=== PATIENT | female | born 2000 | race Hispanic/Latino ===

== ENCOUNTER → 2021-12-07 10:27 | Outpatient (CLI) | payer OTHER, SELFPAY ==
[2021-12-07 11:02] LABS: Appearance Urine UA CLEAR; Bilirubin Urine UA NEGATIVE (NEGATIVE); Color Urine UA YELLOW; Glucose Urine UA NEGATIVE (Negative); Ketones Urine UA NEGATIVE (NEGATIVE); Leukocyte Esterase Urine UA NEGATIVE (NEGATIVE); Nitrite Urine UA NEGATIVE (Negative); Occult Blood Urine UA NEGATIVE (Negative); Protein Urine UA NEGATIVE (Negative); Urobilinogen Urine UA 0.2 E.U./dL (0.2); pH Urine UA 7.5 (4.5-8.0)
[2021-12-07 11:27] LABS: Add Manual Diff / Slide Review NO; Basophils Absolute Auto 100 /uL (0-100); Basophils Percent Auto 0.7 % (0-2); Eosinophils Absolute Auto 100 /uL (0-450); Eosinophils Percent Auto 0.9 % (2-4); Hematocrit 34.5 % (36-46); Hemoglobin 11.7 g/dL (12.0-16.0); Lymphocytes Absolute Auto 2300 /uL (1100-4500); Lymphocytes Percent Auto 24.8 % (25-40); Mean Corpuscular Hemoglobin 29.5 PG (26-34); Mean Corpuscular Volume 86.9 fL (80-100); Monocytes Absolute Auto 700 /uL (0-900); Monocytes Percent Auto 7.2 % (3-14); Neutrophils Absolute Auto 6100 /uL (1500-7000); Neutrophils Percent Auto 66.4 % (50-75); Platelet Count 313 X10^3/uL (150-400); Red Blood Cell Count 3.97 X10^6/uL (4.0-5.2); Red Cell Distribution Width 13.3 % (11.6-14.8); White Blood Cell Count 9.2 X10^3/uL (4.5-11.0)
[2021-12-08 07:19] LABS: RPR Screen Non Reactive (Non Reactive)
[2021-12-08 10:04] LABS: Varicella IgG Antibody 245 index (Immune >165)
[2021-12-08 17:32] LABS: Hepatitis B Surface Antigen NEGATIVE s/c (NEGATIVE); Rubella Antibody IgG 6.6 IU/mL (>15)
[2021-12-08 17:51] LABS: HIV 1 & 2 Ab/Ag 4th Gen Combo NEGATIVE (NEGATIVE); Hep C Virus Ab w/Reflex Quant NEGATIVE s/c (NEGATIVE)
== END ==
PROVIDERS: Referring Provider Family Medicine; Visit Provider Family Medicine
DX: Z34.00 Encounter for supervision of normal first pregnancy, unspecified trimester (principal)
CPT/HCPCS: 36415; 80055; 81003; 86787; 86803; 86850; 86900; 86901; 87086; 87389

== ENCOUNTER → 2021-12-22 10:23 | Outpatient (CLI) | payer OTHER, SELFPAY ==
[2021-12-22 11:28] LABS: Appearance Urine UA CLEAR; Bilirubin Urine UA NEGATIVE (NEGATIVE); Color Urine UA YELLOW; Glucose Urine UA NEGATIVE (Negative); Ketones Urine UA NEGATIVE (NEGATIVE); Leukocyte Esterase Urine UA TRACE (NEGATIVE); Nitrite Urine UA NEGATIVE (Negative); Occult Blood Urine UA 2+ (Negative); Protein Urine UA TRACE (Negative); Urobilinogen Urine UA 0.2 E.U./dL (0.2)
[2021-12-22 12:04] LABS: Bacteria Urine Few (2-10); RBC Urine 1-5/HPF (0-5/HPF); Squamous Epithelial Cell Urine 1-5 /HPF (0-5/HPF); WBC Urine 5-10/HPF (0-5/HPF)
[2021-12-22 12:05] LABS: Culture Indicated Urine Specimen Cultured
== END ==
PROVIDERS: Referring Provider Family Medicine; Visit Provider Family Medicine
DX: R31.9 Hematuria, unspecified (principal)
CPT/HCPCS: 81001; 87086

== ENCOUNTER → 2022-02-14 12:42 | Outpatient (CLI) | payer OTHER, SELFPAY ==
[2022-02-16 21:15] LABS: AFP, Serum 63.6 ng/mL (.); Estriol, Free 1.44 ng/mL (.); Inhibin A, Dimeric 229.25 pg/mL (.); Inhibin A, MoM 1.48 (.); Maternal Ethnicity Other (.); Maternal Weight 155 lbs (.); Number of Fetuses No (.); OSBR Risk 1 IN 4803 (.); Results Report (.); Test Results *Screen Negative* (.); hCG, MoM 0.95 (.); hCG, Serum 25929 mIU/mL (.)
== END ==
PROVIDERS: Referring Provider Family Medicine; Visit Provider Family Medicine
DX: Z34.90 Encounter for supervision of normal pregnancy, unspecified, unspecified trimester (principal)
CPT/HCPCS: 82105; 82677; 84702; 86336

== ENCOUNTER → 2022-02-23 14:05 | Outpatient (CLI) | payer OTHER, SELFPAY ==
--- NOTE | 2022-02-23 14:07 | DI.US.S_ITS ---
PROCEDURE: US OB >= 14 WEEKS FETUS INDICATIONS: ANATOMY AND DATING OUTSIDE/PRIOR DATING DATA: Last menstrual period (LMP): 09/16/2021. LMP-based estimated date of delivery (NATHANIEL): 07/13/2022. First dating scan (date and location): 02/23/2022 at . Estimated date of delivery (NATHANIEL) from first dating scan: 07/16/2022. TECHNIQUE: Real-time scanning was performed of the fetus, with image documentation and biometric measurements. Endovaginal scanning: Not performed COMPARISON: None. FINDINGS: General: A single living intrauterine gestation is present. Presentation: Vertex. Placenta: Placental position is posterior , without previa. Amniotic fluid index: 11.4 cm, normal range is 5-24 cm. Single deepest vertical pocket is 4.0 cm. heart rate: 140 beats per minute. Maternal cervical canal: 4.3 cm long. Normal lower limit is 2.5 cm. biometrics: Biparietal diameter: 19 weeks 6 days Head circumference: 19 weeks 4 days Abdominal circumference: 19 weeks 2 days Femur length: 19 weeks 4 days Clinically estimated gestational age: 20 weeks 0 day. Composite gestational age from present scan: 19 weeks 4 days Estimated weight and percentile: 292; 18% Anatomic survey: Neuro: Ventricles are non-dilated at less than 10 mm. Cisterna magna is normal at 3-11 mm. Cerebellum is normal in size and morphology. Nuchal skin fold: Normal at less than 6 mm between 14-21 weeks gestational age. Face: Nose and lips are normal. Facial profile suboptimally visualized. Spine: No evidence for spina bifida. Heart: 4-chambered heart is present, with normal ventricular outflow tracts. Diaphragm: Diaphragm is intact. Stomach: Left-sided stomach is present. Kidneys: No hydronephrosis. Normal is less than 5 mm in 2nd trimester, less than 7 mm in 3rd trimester. Cord: 3-vessel cord. Placental cord insertion is approximately 2.8 cm from the edge. Bladder: Normal in size. Extremities: All 4 extremities identified. IMPRESSION: 1. A single living intrauterine gestation with an estimated gestational age of 19 weeks 4 days corresponding to ultrasound NATHANIEL 07/16/2022. 2. Suboptimal visualization of facial profile. Otherwise normal anatomic survey. 3. Placental cord insertion is approximately 2.8 cm from the edge. We strive to produce accurate, complete, and clear reports of imaging services. To assist us in improving patient care, this report was composed using standard report templates and voice recognition software. Therefore, it may contain abnormal punctuation, insertions and/or omissions. Occasional wrong-word or sound-alike substitutions may occur. Though we review the report and make efforts to correct it, we do recommend that the report be read carefully in proper context to recognize any text inaccuracies. Dictated by: Sita Nino M.D. on 02/23/2022 at 17:03 Approved by: Sita Nino M.D. on 02/23/2022 at 17:11
== END ==
PROVIDERS: PCP Family Medicine; Referring Provider Family Medicine; Visit Provider Family Medicine
DX: Z3A.19 19 weeks gestation of pregnancy; Z34.92 Encounter for supervision of normal pregnancy, unspecified, second trimester
CPT/HCPCS: 76811

== ENCOUNTER → 2022-03-20 08:47 | Outpatient (CLI) | payer OTHER, SELFPAY ==
--- NOTE | 2022-03-20 08:48 | DI.US.S_ITS ---
PROCEDURE: US OB FOLLOW UP INDICATIONS: f/u to view facial features of fetus OUTSIDE/PRIOR DATING DATA: Last menstrual period (LMP): 10/06/2021 LMP-based estimated date of delivery (NATHANIEL): 07/13/2022 First dating scan (date and location): 02/23/2022 Estimated date of delivery (NATHANIEL) from first dating scan: 07/16/2022 The calculations are made using the study generated NATHANIEL of 07/16/2022. TECHNIQUE: Real-time scanning was performed of the fetus, with image documentation and biometric measurements. Endovaginal scanning: Not indicated. COMPARISON: [facility], , OB >= 14 WEEKS FETUS, 02/23/2022, 14:28. FINDINGS: General: A single living intrauterine gestation is present. Presentation: Cephalic. Placenta: Placental position is posterior, without previa. Amniotic fluid index: 14.9 cm, normal range is 5-24 cm. Single deepest vertical pocket is 3.9 cm. heart rate: 135 beats per minute. Maternal cervical canal: 4 cm long. Normal lower limit is 2.5 cm. biometrics: Biparietal diameter: 5.73 cm, 23 weeks, 4 days Head circumference: 20.97 cm, 23 weeks, 0 day Abdominal circumference: 18.58 cm, 23 weeks, 3 days Femur length: 4.13 cm, 23 weeks, 5 days Clinically estimated gestational age: 23 weeks, 1 day Composite gestational age from present scan: 23 weeks, 3 days Estimated weight and percentile: 587 grams, 32 percent Other: N suboptimal evaluation of facial profile and appears grossly within normal limits. No gross abnormality is seen in bilateral kidneys. IMPRESSION: 1. Single live intrauterine gestation with fetus in cephalic presentation. heart rate is 135 beats per minute. Normal growth. Normal amount of amniotic fluid. 2. facial profile is again suboptimally evaluated however appears grossly within normal limits. We strive to produce accurate, complete, and clear reports of imaging services. To assist us in improving patient care, this report was composed using standard report templates and voice recognition software. Therefore, it may contain abnormal punctuation, insertions and/or omissions. Occasional wrong-word or sound-alike substitutions may occur. Though we review the report and make efforts to correct it, we do recommend that the report be read carefully in proper context to recognize any text inaccuracies. Dictated by: Jeffry Rosado M.D. on 03/20/2022 at 10:49 Approved by: Jeffry Rosado M.D. on 03/20/2022 at 10:53
== END ==
PROVIDERS: PCP Family Medicine; Referring Provider Family Medicine; Visit Provider Family Medicine
DX: Z34.00 Encounter for supervision of normal first pregnancy, unspecified trimester (principal)
CPT/HCPCS: 76816

== ENCOUNTER → 2022-04-26 16:37 | Outpatient (CLI) | payer OTHER, SELFPAY ==
[2022-04-26 18:51] LABS: GTT (PREG) 1 Hour PP 50gm Dose 72 mg/dL (76-139)
[2022-04-29 19:07] LABS: Calc Gestational Age Ultrasound (.); Estriol, Free 1.97 ng/mL (.); Inhibin A, Dimeric 308.44 pg/mL (.); Inhibin A, MoM 2.19 (.); Maternal Ethnicity Other (.); Maternal Weight 170 lbs (.); Number of Fetuses No (.); OSBR Risk 1 IN 10 (.); Results Report (.); Test Results *Screen Positive* (.); hCG, MoM 0.44 (.); hCG, Serum 12526 mIU/mL (.)
== END ==
PROVIDERS: PCP Family Medicine; Referring Provider Family Medicine; Visit Provider Family Medicine
DX: Z34.92 Encounter for supervision of normal pregnancy, unspecified, second trimester (principal); Z3A.18 18 weeks gestation of pregnancy
CPT/HCPCS: 36415; 82105; 82677; 82950; 84702; 86336

== ENCOUNTER → 2022-06-20 14:05 | Outpatient (CLI) | payer OTHER, SELFPAY ==
[2022-06-21 15:41] LABS: Strep Grp B PCR NEG for Grp B Strep
== END ==
PROVIDERS: PCP Family Medicine; Visit Provider Family Medicine
DX: Z36.85 Encounter for antenatal screening for Streptococcus B (principal)
CPT/HCPCS: 87653

== ENCOUNTER → 2022-07-06 09:31 | Outpatient (CLI) | payer OTHER, SELFPAY ==
--- NOTE | 2022-07-06 09:32 | DI.US.S_ITS ---
PROCEDURE: US OB LIMITED INDICATIONS: size < dates OUTSIDE/PRIOR DATING DATA: Last menstrual period (LMP): 10/06/2021 LMP-based estimated date of delivery (NATHANIEL): 07/13/2022. First dating scan (date and location): 02/23/2022. Estimated date of delivery (NATHANIEL) from first dating scan: 07/16/2022 The calculations are made using the working NATHANIEL of 07/13/2022. TECHNIQUE: Real-time scanning was performed of the fetus for biophysical profile, with image documentation. Color and pulse Doppler interrogation was also performed of the umbilical artery near its insertion into the placenta. Endovaginal scanning: Not indicated COMPARISON: [facility], OB >= 14 WEEKS FETUS, 02/23/2022, 14:28. [facility], OB FOLLOW UP, 03/20/2022, 8:55. FINDINGS: General: A single living intrauterine gestation is present. Presentation: Vertex Placenta: Placental position is posterior, without previa. Amniotic fluid index: 15.7 cm, normal range is 5-24 cm. Single deepest vertical pocket is 6.2 cm. heart rate: 136 beats per minute. Maternal cervical canal: Not well seen. BPD: 8.62 cm, 34 weeks, 6 days. HC: 31.6 cm, 35 weeks, 3 days. AC: 31.98 cm, 35 weeks, 6 days FL: 6.58 cm, 33 weeks, 6 days. Clinically estimated gestational age: 34 weeks, 5 days Estimated gestational age from initial scan: 39 weeks, 0 day. Estimated weight is 2622 g and is at 3%. Umbilical artery Doppler: 2.4, 3.5, 3.3 IMPRESSION: 1. Single live intrauterine gestation with fetus in vertex presentation. heart rate is 136 beats per minute. Normal amount of amniotic fluid. 2. Estimated weight is at 3%. Estimated gestational age based on current study is 34 weeks, 5 days and estimated gestational age based on initial study is 39 weeks, 0 day. 3. Normal umbilical artery S/D ratio. We strive to produce accurate, complete, and clear reports of imaging services. To assist us in improving patient care, this report was composed using standard report templates and voice recognition software. Therefore, it may contain abnormal punctuation, insertions and/or omissions. Occasional wrong-word or sound-alike substitutions may occur. Though we review the report and make efforts to correct it, we do recommend that the report be read carefully in proper context to recognize any text inaccuracies. Dictated by: Jeffry Rosado M.D. on 07/06/2022 at 11:00 Approved by: Jeffry Rosado M.D. on 07/06/2022 at 11:06
== END ==
PROVIDERS: PCP Family Medicine; Referring Provider Family Medicine; Visit Provider Family Medicine
DX: O26.843 Uterine size-date discrepancy, third trimester (principal); Z3A.34 34 weeks gestation of pregnancy
CPT/HCPCS: 76815

== ENCOUNTER 2022-07-07 16:06 | Outpatient (CLI) | payer OTHER, SELFPAY | END 2022-07-07 16:45 | disposition home or self-care (01) | LOC: LABOR 16:52 → OB 07-14 16:40 | PROVIDERS: PCP Family Medicine; Referring Provider Family Medicine; Visit Provider Family Medicine | DX: O36.5930 Maternal care for other known or suspected poor fetal growth, third trimester, not applicable or unspecified (principal); Z3A.38 38 weeks gestation of pregnancy | CPT/HCPCS: 59025; G0378; G0379 ==

== ENCOUNTER 2022-07-09 19:02 | Inpatient (IN) | payer OTHER, SELFPAY ==
[2022-07-09 20:08] LABS: Add Manual Diff / Slide Review NO; Basophils Absolute Auto 200 /uL (0-100); Basophils Percent Auto 1.4 % (0-2); Eosinophils Absolute Auto 100 /uL (0-450); Eosinophils Percent Auto 0.8 % (2-4); Hematocrit 31.3 % (36-46); Hemoglobin 10.8 g/dL (12.0-16.0); Lymphocytes Absolute Auto 1800 /uL (1100-4500); Lymphocytes Percent Auto 17.3 % (25-40); Mean Corpuscular HGB Conc 34.6 % (30-36); Mean Corpuscular Hemoglobin 31.4 PG (26-34); Mean Corpuscular Volume 90.7 fL (80-100); Monocytes Absolute Auto 700 /uL (0-900); Monocytes Percent Auto 6.8 % (3-14); Neutrophils Absolute Auto 7800 /uL (1500-7000); Neutrophils Percent Auto 73.7 % (50-75); Platelet Count 255 X10^3/uL (150-400); Red Blood Cell Count 3.45 X10^6/uL (4.0-5.2); Red Cell Distribution Width 13.7 % (11.6-14.8); White Blood Cell Count 10.6 X10^3/uL (4.5-11.0)
[2022-07-09] MEDS: DINOPROSTONE VAG (CERVIDIL) 10 MG VAG (20:12)
[2022-07-09 20:25] LABS: COVID19 -Nasal RAPID Negative (Negative)
[2022-07-09] MEDS: LACTATED RINGERS 1,000 ML 100 ML IV (23:02)
[2022-07-10 02:26] VITALS: BP 117/65
[2022-07-10] MEDS: OXYTOCIN 10 UNIT/ML VIAL IM (08:03)
--- NOTE | 2022-07-10 08:45 | P.HPOB_ITS ---
OB HPI Date/Time Date of admission: 07/09/22 Date Patient Seen: 07/10/22 History of Present Condition Chief complaint: maternity NATHANIEL Calculator Estimated Delivery Date Method Current WG Current Estimate 07/13/22 Manual 39w 4d Final NATHANIEL - DELFINO Other Estimates 07/13/22 LMP (Uncertain) 39w 4d 07/13/22 Ultrasound #1 39w 4d Estimated Gestational Age (weeks): 39w4d : 1 Para: 0 Narrative: 21yo at 39w4d here for IOL for IUGR. Prior to presentation pt denied any contractions, LOF, or vaginal bleeding. She was feeling her baby move regularly. Her was uncomplicated until 39w1d when diagnosed with IUGR on growth ultrasound with baby in the 3rd percentile. NST was reactive that day. care: good care, initiated at week # (8) and pounds weight gain (48) Dating criteria OB: LMP confirmed by 1st trimester US Ultrasounds: none Obstetrical complications: growth restriction Medical complications OB: none Indications Indication for induction OB: intra-uterine growth restriction Preadmission Labs Last OB Lab Results: Blood Type O Positive 07/09/22 19:15 Antibody Screen Negative 07/09/22 19:15 Hematocrit 31.3 % (36-46) L 07/09/22 19:15 Hemoglobin 10.8 g/dL (12.0-16.0) L 07/09/22 19:15 Hepatitis B Surface Antigen Negative s/c (NEGATIVE) 12/07/21 10 :41 Hepatitis C Antibody Negative s/c (NEGATIVE) 12/07/21 10:41 Rubella Antibody 6.6 IU/mL (>15) L 12/07/21 10:41 Varicella-Zoster IgG Antibody 245 index (Immune >165) 12/07/21 10:41 Glucose 1 Hour 72 mg/dL (76-139) L 04/26/22 16:45 Group B Streptococcus (PCR) Neg for grp b strep 06/20/22 14:05 -: Urine: negative Genetic Screens: Quad screen: Normal External Labs -: Urine: negative Evaluation Evaluation Baseline heart rate: 125 Variability: Moderate (11-25) monitor accelerations: Present Contraction Frequency (minutes): 2 Status: Category l Dilation (cm): 10 Effacement (%): 100 station: +2 [facility] Medical History (Updated 01/05/22 @ 19:50 by Brittany Verdin) No pertinent past medical history Surgical History (Updated 01/05/22 @ 19:50 by Brittany Verdin) Anesthesia [place]is teeth removed (~08/09/20) Family History (Updated 01/05/22 @ 19:51 by Brittany Verdin) Grandmother Diabetes mellitus Mother Cancer Social History marital status: number of children: 0 household members: spouse pets and animals: Yes (Dogs, aware of toxoplasmosis) occupational status: unemployed cm/rastafari: Spiritism special cm needs: No travel history: recent ([place]) seatbelt use: always water heater temp set < 120 deg: Yes working smoke detector in home: Yes fire extinguisher in home: Yes carbon monox detector in home: Yes firearms in home: No do you feel safe at home: Yes Smoking Status: Never smoker second hand exposure: No alcohol intake: former substance use type: does not use well-balanced diet: daily or most days daily servings fruits/ve-4 caffeine: Yes Type(s) of exercise: regular exercise Meds Home Medications and Allergies Home Medications Medication Instructions Recorded Confirmed Type prenat.vits,mile,zmc-ewqu-[id number] 2 tab PO DAILY 11/30/21 07/10/22 History ondansetron 4 mg disintegrating 4 mg PO Q8H PRN nausea and 12/07/21 07/03/22 Rx tablet vomiting #14 tabs guaifenesin 200 mg tablet 200 mg PO QID PRN congestion #30 05/29/22 07/03/22 Rx tabs double electric breast pump and #1 ea 06/20/22 07/03/22 Rx supplies double electric breast pump and #1 ea 06/26/22 07/03/22 Rx supplies magnesium 1 tab PO DAILY 07/10/22 07/10/22 History Allergies Allergy/AdvReac Type Severity Reaction Status Date / Time No Known Drug Allergies Allergy Verified 07/10/22 04:02 OB Exam Narrative Exam Narrative: Gen: NAD, sitting comfortably in bed, appears well CV: RRR, no murmurs Resp: clear to auscultation bilaterally Abd: soft, nontender, gravid Ext: no edema Objective Labs Result Diagrams: 07/09/22 19:15 Labs: Laboratory Results - last 24 hr 07/09/22 07/09/22 07/09/22 19:15 19:15 19:30 WBC 10.6 RBC 3.45 L Hgb 10.8 L Hct 31.3 L MCV 90.7 MCH 31.4 MCHC 34.6 RDW 13.7 Plt Count 255 Neut % (Auto) 73.7 Lymph % (Auto) 17.3 L [place] % (Auto) 6.8 Eos % (Auto) 0.8 L Baso % (Auto) 1.4 Neut # (Auto) 7800 H Lymph # (Auto) 1800 [place] # (Auto) 700 Eos # (Auto) 100 Baso # (Auto) 200 H SARS-CoV-2 (PCR) Negative Blood Type O Positive Antibody Screen Negative Assessment and Plan Assessment and Plan Assessment and Plan narrative: 21yo at 39w4d here for IOL for IUGR. GBS negative, Rh positive. Pt received cervidil last night, however had to be removed shortly after placed due to tachysystole. Pt then progressed to complete dilation, now pushing. - Expectant management, anticipate - Natural methods for pain control - FHT reassuring, intermittent auscultation - GBS negative, no prophylaxis needed
--- NOTE | 2022-07-10 08:45 | PM.OBPRVD ---
Labor & Delivery Delivery date: 07/10/22 Intrapartal Events: None Cervical ripening method: per Cervidil protocol Induction method: none Delivery monitor: external FHT and external uterine Route of delivery: Episiotomy description: None L&D Laceration Description: Periurethral - 1st Degree and Perineal - 2nd Degree Estimated blood loss (mL): 450 Anesthesia Type: None Complications: None Narrative: PROCEDURE: at 39w3d presented for IOL for IUGR and was admitted to Labor and Delivery. She received Cervidil for IOL, which was removed after 4hrs due to tachysystole. The pt then progressed into active labor independent of medications, and had SROM with clear fluid present. The patient progressed through the 1st stage over 4 hours. Pain was controlled with natural methods. The patient progressed through the 2nd stage over 1.5 hours and delivered a viable female with APGARs 9/9 at 7:48 via without complications. The cord was cut and clamped after it stopped pulsating. The perineum and vagina were inspected with right periurethral laceration repaired with 3-O Chromic, 2nd degree perineal laceration repaired with 2-O Vicryl. PREPROCEDURE DIAGNOSIS: Intrauterine at 39w4d IUGR GBS negative RH positive POSTPROCEDURE DIAGNOSIS: Intrauterine at 39w4d, delivered Same as preprocedure Baby 1: gender: Female Presentation: vertex Position: Left Occiput Anterior Placenta delivery description: Spontaneous Cord Vessel Description: 3 Vessels score (1 min): 9 score (5 min): 9 weight: 6 lb 1.25 oz Plan for aftercare: Routine care
[2022-07-10] MEDS: IBUPROFEN 600 MG TABLET PO ×3 (09:14→21:16)
[2022-07-10] MEDS: ACETAMINOPHEN 325 MG TABLET 650 MG PO ×3 (09:15→21:15)
[2022-07-10] MEDS: LIDOCAINE 2% INJ MDV 20ML 20 ML (10:03)
[2022-07-10] MEDS: LIDOCAINE 1% 20 ML (10:03)
--- NOTE | 2022-07-10 10:55 | PATH_ITS ---
[facility] Accession Number: [id number] . 01 Material submitted: . placenta - PLACENTA . 01 Diagnosis: Placenta: Placenta parenchyma: 395 grams. Chorionic villous maturation is slightly less mature than for a full-term placenta. Moderate inter- and intravillous fibrin is present. No villitis identified. . Membranes: Insert at placental disc margin. Ruptured 5.2 cm from the placental disc edge. No chorioamnionitis identified. . Umbilical cord: 37.2 cm in length. Eccentrically inserted 2.3 cm from the placental disc margin. Three vessels present. No funisitis identified. MRV 07/14/2022 1231 Local . 01 Electronically signed: . Linda Albarado MD, Pathologist NPI- [id number] . 01 Gross description: . The specimen is received in formalin labeled with the patient's name and no additional designation, and consists of a discoid levy placenta weighing 395 grams trimmed weight, and measuring 17.1 x 14.4 x 2.7 cm with no accessory lobes identified. . The membranes are robb and translucent with a small amount of adherent clot and no robb areas of thickening identified. The membranes insert at the margin, and the point of rupture is 5.2 cm from the placental disc edge. . The cord measures 37.2 cm in length and averages 1.7 cm in diameter, and is moderately edematous. The cord has a leftward twist with an index of approximately 1 twist per 5 cm. The cord inserts eccentrically 2.3 cm from the nearest placental disc edge. Sectioning reveals unremarkable trivascular architecture with no knots identified. . The surface is blue-melton with minor areas of robb firm discoloration located at the periphery occupying less than 10% of the surface. A single cystic structure located eccentrically is identified measuring 0.6 x 0.6 x 0.2 cm and occupies less than 10% of the surface. The vasculature is arborizing and unremarkable, and no additional lesions are identified. . The maternal surface is apparently complete with no adherent clot identified and small areas of robb discoloration located across the maternal surface occupying less than 10% of the area. Sectioning reveals a red spongy cut surface with no discoloration or lesions identified. Uniform Cap Operator sections are submitted as follows: . A1: Cord. A2: Membrane roll. A3: Peripheral surface discoloration and surface cystic structure. A4: Full-thickness central maternal surface discolorations. A5-A7: Central full-thickness normal sections. ([id number]) /MRV 07/14/2022 [facility] Local . 01 Pathologist provided ICD-10: O43.90 . 01 CPT . 451386 Specimen Comment: A courtesy copy of this report has been sent to [phone] Performed at: 01 [facility] [address] [place] [address], [place], [place] [id number] MD Tal Ledbetter MD Phone: [phone]
[2022-07-10] MEDS: OXYCODONE IR 5 MG TABLET PO (21:15)
[2022-07-11] MEDS: ACETAMINOPHEN 325 MG TABLET 650 MG PO ×2 (03:22→09:13)
[2022-07-11] MEDS: IBUPROFEN 600 MG TABLET PO ×2 (03:22→09:13)
[2022-07-11 06:17] LABS: Add Manual Diff / Slide Review NO; Basophils Absolute Auto 100 /uL (0-100); Basophils Percent Auto 0.3 % (0-2); Eosinophils Absolute Auto 100 /uL (0-450); Eosinophils Percent Auto 0.5 % (2-4); Hematocrit 24.9 % (36-46); Hemoglobin 8.5 g/dL (12.0-16.0); Lymphocytes Absolute Auto 3300 /uL (1100-4500); Lymphocytes Percent Auto 22.7 % (25-40); Mean Corpuscular Hemoglobin 31.1 PG (26-34); Mean Corpuscular Volume 91.4 fL (80-100); Monocytes Absolute Auto 1000 /uL (0-900); Monocytes Percent Auto 6.8 % (3-14); Neutrophils Absolute Auto 10000 /uL (1500-7000); Neutrophils Percent Auto 69.7 % (50-75); Platelet Count 208 X10^3/uL (150-400); Red Blood Cell Count 2.73 X10^6/uL (4.0-5.2); Red Cell Distribution Width 13.7 % (11.6-14.8); White Blood Cell Count 14.4 X10^3/uL (4.5-11.0)
--- NOTE | 2022-07-11 08:49 | P.DS_ITS ---
Discharge Providers Provider Date of admission: 07/09/22 19:02 Discharge Date: 07/11/22 Primary care physician: Stephanie Perez MD Consults: 07/11/22 08:44 Consult to Rep[employer]r [employer] Routine Comment: Discharge provider: Stephanie Perez MD Summary Hospital Course Date Patient Seen: 07/11/22 Diagnoses: Intrauterine at 39w4d IUGR GBS negative RH positive Anemia due to acute blood loss Hospital Course: The pt presented for IOL for IUGR. She received cervidil for induction, and progressed into active labor. She used natural methods for pain control. She had an of a viable baby girl on 07/10/22. A 2nd degree perineal and right periurethral laceration were then repaired. , there were no complications. At the time of discharge she was voiding, ambulating, and passing flatus without difficulty. Her lochia was decreasing appropriately. She was with good latch. Her pain was well controlled. She will f/u for 6 week check. She will continue on iron supplement at discharge due to anemia. Peripartum Data Infant Delivery Method: Natural Vaginal Laceration Description: Periurethral - 1st Degree and Perineal - 2nd Degree Episiotomy description: None Procedures: Spontaneous vaginal delivery complications: none 1: Gender: Female Disposition of : home Discharge Diagnosis (1) Spontaneous vaginal delivery: Status: Acute Status at Discharge Cognitive/behavioral status at discharge: oriented Functional status at discharge: independent ambulation Overall status at discharge: patient is progressing back to baseline Time Spent with Patient Time attestation: Total time spent providing and/or coordinating discharge services: Objective Labs Result Diagrams: 07/11/22 06:08 Labs: Laboratory Results - last 24 hr 07/11/22 06:08 WBC 14.4 H RBC 2.73 L Hgb 8.5 L Hct 24.9 L MCV 91.4 MCH 31.1 MCHC 34.0 RDW 13.7 Plt Count 208 Neut % (Auto) 69.7 Lymph % (Auto) 22.7 L [place] % (Auto) 6.8 Eos % (Auto) 0.5 L Baso % (Auto) 0.3 Neut # (Auto) 76756 H Lymph # (Auto) 3300 [place] # (Auto) 1000 H Eos # (Auto) 100 Baso # (Auto) 100 Exam Narrative Exam Narrative: Gen: NAD, sitting comfortably in bed, appears well CV: RRR, no murmurs Resp: clear to auscultation bilaterally Abd: soft, appropriately tender, fundus firm and below the umbilicus, nondistended Ext: no edema Discharge Plan Discharge Plan Patient Disposition: Home Discharge orders & Medications Prescriptions: New acetaminophen 325 mg Tablet 650 mg PO Q6HR PRN (Reason: Pain, Mild (1-3)) Qty: 30 0RF ferrous sulfate 325 mg (65 mg iron) Tablet 325 mg PO DAILY Qty: 30 0RF docusate sodium 100 mg Capsule 100 mg PO DAILY Qty: 30 0RF ibuprofen 600 mg Tablet 600 mg PO Q6HR PRN (Reason: Pain, Mild (1-3)) Qty: 30 0RF Continued (DME) double electric breast pump and supplies See Rx Instructions .ROUTE .MEDSUPPLY Qty: 1 0RF Rx Instructions: As directed (DME) double electric breast pump and supplies See Rx Instructions .ROUTE .MEDSUPPLY Qty: 1 0RF Rx Instructions: As directed prenat.vits,mile,jeq-wxzz-xfxin Tablet 2 tab PO DAILY Discontinued ondansetron 4 mg tablet,disintegrating 4 mg PO Q8H PRN (Reason: nausea and vomiting) Qty: 14 0RF guaifenesin 200 mg tablet 200 mg PO QID PRN (Reason: congestion) Qty: 30 0RF magnesium 1 tab PO DAILY Follow up/Referrals: Stephanie Perez MD [Primary Care Provider] - 6 Weeks Diet/Activity/Treatments Diet: Diet as Tolerated and Regular Skin/Wound/Dressing Care Report to your healthcare provider any signs of infection, such as:: chills, fever, increased pain and unusual drainage Visit Report/Discharge Packet Instructions: DI for Labor and Delivery, Vaginal Visit Report Forms: Patient Portal/API, Stroke Signs & Symptoms Discharge Data Primary Care Provider: Stephanie Perez
[2022-07-11] MEDS: PRENATAL VIT,CALC/IRON/FOLIC 1 TABLET 1 TAB PO (09:14)
[2022-07-11] MEDS: DOCUSATE 100 MG CAPSULE PO (09:14)
[2022-07-11] MEDS: FERROUS SULFATE 325 MG TABLET PO (09:14)
[2022-07-11 10:07] VITALS: BP 98/61; PULSE 48; RESP 16; TEMP 36.5
[2022-07-11] MEDS: LANOLIN OINT 7 GM 1 APPLIC TOP (10:58)
== END 2022-07-11 14:28 | disposition home or self-care (01) | DRG 807 ==
PROVIDERS: Admitting Provider Family Medicine; PCP Family Medicine; Referring Provider Family Medicine; Visit Provider Family Medicine
DX: O36.5930 Maternal care for other known or suspected poor fetal growth, third trimester, not applicable or unspecified (principal); Z37.0 Single live birth; Z3A.39 39 weeks gestation of pregnancy; O62.8 Other abnormalities of forces of labor; O70.1 Second degree perineal laceration during delivery; O71.82 Other specified trauma to perineum and vulva; Z67.40 Type O blood, Rh positive; Z20.822 Contact with and (suspected) exposure to COVID-19
CPT/HCPCS: 36415; 59050; 59200; 59400; 85025; 86850; 86900; 86901; 87635; C9803; G0379; J2590

== ENCOUNTER → 2022-07-18 11:52 | Outpatient (CLI) | payer OTHER, SELFPAY ==
[2022-07-18 14:17] LABS: Appearance Urine UA CLEAR; Bilirubin Urine UA NEGATIVE (NEGATIVE); Color Urine UA YELLOW; Glucose Urine UA NEGATIVE (Negative); Ketones Urine UA NEGATIVE (NEGATIVE); Leukocyte Esterase Urine UA TRACE (NEGATIVE); Nitrite Urine UA NEGATIVE (Negative); Occult Blood Urine UA 2+ (Negative); Protein Urine UA NEGATIVE (Negative); Urobilinogen Urine UA 0.2 E.U./dL (0.2)
[2022-07-18 14:27] LABS: pH Urine UA 6.5 (4.5-8.0)
[2022-07-18 14:55] LABS: RBC Urine 1-5/HPF (0-5/HPF); WBC Urine 5-10/HPF (0-5/HPF)
[2022-07-18 14:56] LABS: Bacteria Urine None Seen; Culture Indicated Urine Specimen Cultured
== END ==
PROVIDERS: PCP Family Medicine; Visit Provider Family Medicine
DX: R30.0 Dysuria (principal); N89.8 Other specified noninflammatory disorders of vagina
CPT/HCPCS: 81001; 87070; 87086; 87205; 87210

== ENCOUNTER → 2023-05-23 12:59 | Outpatient (CLI) | payer OTHER, SELFPAY ==
--- NOTE | 2023-05-23 13:00 | DI.US.S_ITS ---
PROCEDURE: US OB <= 14 WEEKS FETUS INDICATIONS: DATING AND VIABILITY OUTSIDE/PRIOR DATING DATA: Last menstrual period (LMP): Unsure. TECHNIQUE: Real-time scanning was performed of the fetus and maternal pelvic organs, with image documentation. Endovaginal scanning was also performed to better visualize the fetus and maternal ovaries. COMPARISON: None. FINDINGS: Per the mixer diamond powder worksheet, positive urine test. Best seen on cine images, there appears to be cystic change of the endometrium and/or myometrium or placenta including multiple small cysts and a larger irregular cystic area/region. Unclear if this represents an abnormal gestational sac. There is an adjacent rounded echogenic structure without definite internal vascularity on Doppler images measuring approximately 1.7 x 1.7 x 2.0 cm. No normal appearing yolk sac or embryo identified within the uterus. Ovaries are unremarkable sonographically. IMPRESSION: Abnormal appearance of the uterus with multiple small cystic spaces present and a larger irregular cystic area/region also demonstrated. A normal appearing yolk sac or embryo are not identified within the uterus. Findings raise the possibility of etiologies such as gestational trophoblastic disease and/or failed . Gynecology consultation may be helpful to direct further management. Correlation with serum beta HCG is recommended, repeat imaging can be obtained as clinically indicated. We strive to produce accurate, complete, and clear reports of imaging services. To assist us in improving patient care, this report was composed using standard report templates and voice recognition software. Therefore, it may contain abnormal punctuation, insertions and/or omissions. Occasional wrong-word or sound-alike substitutions may occur. Though we review the report and make efforts to correct it, we do recommend that the report be read carefully in proper context to recognize any text inaccuracies. Dictated by: Eric Arias M.D. on 05/24/2023 at 10:54 Approved by: Eric Arias M.D. on 05/24/2023 at 11:13
== END ==
PROVIDERS: PCP Family Medicine; Referring Provider Family Medicine; Visit Provider Family Medicine
DX: O36.80X0 Pregnancy with inconclusive fetal viability, not applicable or unspecified; B97.7 Papillomavirus as the cause of diseases classified elsewhere
CPT/HCPCS: 76801; 76830; 93975

== ENCOUNTER → 2023-05-25 12:25 | Outpatient (CLI) | payer OTHER, SELFPAY ==
[2023-05-25 15:21] LABS: HCG Quantitative /Beta subunit 93774 mIU/mL
== END ==
PROVIDERS: PCP Family Medicine; Referring Provider Specialist; Visit Provider Specialist
DX: O02.0 Blighted ovum and nonhydatidiform mole (principal)
CPT/HCPCS: 36415; 84702

== ENCOUNTER 2023-06-01 06:48 | Day surgery (SDC) | payer OTHER, SELFPAY ==
--- NOTE | 2023-06-01 | PATH_ITS ---
[facility] Accession Number: [id number] No. of containers..01 Tissue . 01 Material submitted: . product of conception - PRODUCTS OF CONCEPTION . 01 Diagnosis: Uterine Contents: Hydropically enlarged immature chorionic villi with abnormal villous morphology (final diagnosis pending ploidy analysis). MRV 06/05/2023 1641 Local . 01 Comment: The chorionic villi are enlarged and hydropic with cistern formation, inclusions, and mild trophoblastic hyperplasia. An immunostain to p57 is performed, with the control stained appropriately. 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 At this juncture, the differential includes a partial molar gestation versus hydropic degeneration. The specimen will be submitted to [facility] for ploidy analysis by flow cytometry, with those results and the final diagnosis reported as an addendum. . * This test was developed and its performance characteristics determined by [facility]. It has not been cleared or approved by the U.S. Food and Drug Administration. The FDA has determined that such clearance or approval is not necessary. This test is used for clinical purposes. It should not be regarded as investigational or for research. . 01 Electronically signed: . Susie Michele MD, Pathologist NPI- [id number] . 01 Gross description: . The specimen is received in formalin labeled with the patient's name, , and products of conception, and consists of multiple robb spongy to membranous soft tissue fragments admixed with mucohemorrhagic material aggregating to 10.7 x 9.4 x 2.2 cm. Multiple cystic structures are identified measuring up to 0.5 cm in greatest dimension with no tissue seen. Patch Press Operator sections are submitted in cassettes A1-A4. ([id number]) /FRR 06/02/2023 1840 Local . 01 Pathologist provided ICD-10: O02.1 . 01 CPT . 741614, J42356 Specimen Comment: A courtesy copy of this report has been sent to [phone] Performed at: 01 [facility] [address] [place] [address], [place], [place] [id number] MD Tal Ledbetter MD Phone: [phone]
[2023-06-01 07:15] VITALS: BP 104/69; PULSE 65; RESP 16; TEMP 36.2; O2SAT 100; BMI 26.6
--- NOTE | 2023-06-01 07:22 | SUR.OPER ---
Lithotomy on padded OR bed, head on pillow, arms secured on padded arm boards at <90 degrees abduction. Legs secured in padded yellow fins stirrups.
--- NOTE | 2023-06-01 07:27 | PM.GYNHP.1 ---
History of Present Illness History of Present Illness Reason for admission: other (Molar by ultrasound and blood test) Narrative: Eduardo Andres is a 22 year old female admitted for suction D and C for molar determined by ultrasound and HCG level [facility] Medical History (Updated 05/24/23 @ 12:55 by My Gong MD) Spontaneous vaginal delivery Surgical History (Updated 01/05/22 @ 19:50 by Brittany Verdin) Anesthesia [place] teeth removed (~08/09/20) Family History (Updated 01/05/22 @ 19:51 by Brittany Verdin) Grandmother Diabetes mellitus Mother Cancer Social History marital status: number of children: 0 household members: spouse pets and animals: Yes (Dogs, aware of toxoplasmosis) occupational status: unemployed cm/christianity: [employer] special cm needs: No travel history: recent ([place]) seatbelt use: always water heater temp set < 120 deg: Yes working smoke detector in home: Yes fire extinguisher in home: Yes carbon monox detector in home: Yes firearms in home: No do you feel safe at home: Yes Smoking Status: Never smoker second hand exposure: No alcohol intake: former substance use type: does not use well-balanced diet: daily or most days daily servings fruits/ve-4 caffeine: Yes Type(s) of exercise: regular exercise Meds Home Medications and Allergies Home Medications Medication Instructions Recorded Confirmed Type double electric breast pump and #1 ea 06/20/22 08/22/22 Rx supplies double electric breast pump and #1 ea 06/26/22 08/22/22 Rx supplies docusate sodium 100 mg capsule 100 mg PO DAILY #30 caps 07/11/22 06/01/23 Rx ferrous sulfate 325 mg (65 mg 325 mg PO DAILY #30 tabs 07/11/22 06/01/23 Rx iron) tablet ibuprofen 600 mg tablet 600 mg PO Q6HR PRN Pain, Mild 07/11/22 06/01/23 Rx (1-3) #30 tabs acetaminophen 325 mg tablet 650 mg PO Q6HR PRN Pain, Mild 07/21/22 06/01/23 Rx (1-3) #30 tabs Allergies Allergy/AdvReac Type Severity Reaction Status Date / Time No Known Drug Allergies Allergy Verified 06/01/23 07:05 Review of Systems Review of Systems Narrative: Patient has some mild cramping but no vaginal bleeding Exam Vital Signs (past 8 hours): - 06/01/23 07:15 Temperature 97.1 F L Pulse Rate 65 Respiratory Rate 16 Blood Pressure 104/69 Pulse Oximetry 100 Oxygen Delivery Method Room Air Oxygen Delivery Method Room Air Narrative Exam Narrative: HEENT exam within normal limits. Lungs are clear to auscultation and percussion. Heart is regular rate and rhythm with 1/6 systolic murmur. No thyromegaly. Abdomen is soft nontender. Extremities without edema and nontender. Objective Imaging US - abdomen: Radiologist's impression: [address] [address] Ultrasound Report Addendum Patient: Eduardo Martinez MR#: [id number] : 2000 Acct:[id number] Age/Sex: 22 / F Date of Service: 05/23/23 Loc: US Accession Number: [id number] ?? Procedure: US OB <= 14 weeks fetus Ordering Provider: Stephanie Perez MD ADDENDUMThis report includes an Addendum and supersedes previous reports for this exam. ? ? ? PROCEDURE:? US OB <= 14 WEEKS FETUS ? INDICATIONS:? DATING AND VIABILITY ? OUTSIDE/PRIOR DATING DATA:? Last menstrual period (LMP):? Unsure.? ? TECHNIQUE:? Real-time scanning was performed of the fetus and maternal pelvic organs, with image documentation.? Endovaginal scanning was also performed to better visualize the fetus and maternal ovaries.? ? COMPARISON:? None. ? FINDINGS:? Per the sand mill operator core sand worksheet, positive urine test. ? Best seen on cine images, there appears to be cystic change of the endometrium and/or myometrium or placenta including multiple small cysts and a larger irregular cystic area/region.? Unclear if this represents an abnormal gestational sac.? There is an adjacent rounded echogenic structure without definite internal vascularity on Doppler images measuring approximately 1.7 x 1.7 x 2.0 cm.? No normal appearing yolk sac or embryo identified within the uterus.? Ovaries are unremarkable sonographically. ? ? IMPRESSION:? Abnormal appearance of the uterus with multiple small cystic spaces present and a larger irregular cystic area/region also demonstrated.? A normal appearing yolk sac or embryo are not identified within the uterus.? Findings raise the possibility of etiologies such as gestational trophoblastic disease and/or failed .? Gynecology consultation may be helpful to direct further management.? Correlation with serum beta HCG is recommended, repeat imaging can be obtained as clinically indicated. ? Labs Labs: 06/24/2023 HCG level 07673 Assessment & Plan Assessment and plan (1) Molar : Problem details: Ultrasound findings consistent with on 05/24/2023 Status: Acute Assessment & Plan narrative: Suction D&C. Consent form was reviewed with the patient and her who helps with translation. Procedure explained. Follow-up explained. Risk of reaction to medication or anesthesia, minimal risk of infection, minimal risk of bleeding enough to require blood transfusion which the patient is agreeable to. Risk of perforation the uterus that could damage internal structures of require additional surgery. Possible retained products that may require monitoring or additional procedures to remove. Consent form signed and questions answered. Time Spent With Patient Time with patient: less than 30 minutes
[2023-06-01] MEDS: LACTATED RINGERS 1,000 ML 42 ML IV (07:30)
--- NOTE | 2023-06-01 07:38 | PM.PREOP ---
Pre-operative Note Interval Note History & Physical reviewed/Exam performed by Physician: Yes Changes to H&P: No
[2023-06-01 08:27] VITALS: BP 98/55; PULSE 76; RESP 13; TEMP 36.7; O2SAT 100
--- NOTE | 2023-06-01 08:29 | PM.OP.1 ---
Operative Date/Time/Diagnoses Date of procedure: 06/01/23 Time of procedure: 08:29 Pre-op diagnosis: Molar Post-op diagnosis: same Procedure & Clinicians Procedure: Suction D&C Same procedure as scheduled: Yes Indications: Molar by ultrasound and HCG level Surgeon: My Gong Click Yes if Unassisted: Yes Anesthesia Type: General Operative Notes Findings: Uterus 12 week size. Large amount of tissue in the uterus. Closure Type: not applicable Specimen(s): other (Products of conception) Estimated Blood Loss (mL): 300 Blood products transfused: none Procedure in detail: Patient was brought to the operating room where she underwent general anesthesia. She was placed in low Yellofin stirrups and prepped and draped in the usual sterile fashion. Patient had urinated prior to coming to the operating room. Warming was with blankets. Antibiotics were not indicated. A check system was reviewed with staff in the room prior to beginning the case. A single-tooth tenaculum was placed on the anterior lip of the cervix and the cervix was dilated to a 8. Hegar dilator. A # 7 Suction curette was placed in the uterus and tissue removed. A sharp curette was performed until there was a gritty feeling around the entire endometrial canal. Suction curette was replaced. Patient received 20 units of Pitocin in 500 cc of saline beginning immediately after the the suction curette was finished. There was no significant active bleeding at the end of the case. Patient went to recovery room in stable condition. Counts of instruments and sponges were correct. Complications: none Post-operative Condition: stable Disposition: same day surgery Plan for aftercare: Home when awake and stable. Patient will be followed for HCG levels down to 0.
[2023-06-01 08:32] VITALS: BP 105/53; PULSE 70; RESP 16; O2SAT 100
[2023-06-01 08:37] VITALS: BP 111/65; PULSE 72; RESP 15; O2SAT 100
[2023-06-01 08:42] VITALS: BP 107/61; PULSE 75; RESP 16; O2SAT 100
[2023-06-01 09:00] VITALS: BP 112/78; PULSE 72; RESP 16; TEMP 36.2; O2SAT 100
--- NOTE | 2023-06-01 09:12 | SUR.PHASEII ---
In PACU, pt had 250ml of 500ml with 20 units of pitocin in it.
== END 2023-06-01 09:35 | disposition home or self-care (01) ==
PROVIDERS: PCP Family Medicine; Referring Provider Specialist; Visit Provider Specialist
PROC: (CPT 58120; principal; 2023-06-01 07:45)
DX: O02.0 Blighted ovum and nonhydatidiform mole (principal)
CPT/HCPCS: 59820; J0330; J1100; J1170; J1885; J2250; J2405; J2590; J2704; J3010

== ENCOUNTER → 2023-06-15 11:46 | Outpatient (CLI) | payer OTHER, SELFPAY ==
[2023-06-15 14:00] LABS: HCG Quantitative /Beta subunit 59.6 mIU/mL
== END ==
PROVIDERS: Specialist; PCP Family Medicine; Referring Provider Student in an Organized Health Care Education/Training Program; Visit Provider Student in an Organized Health Care Education/Training Program
DX: O02.0 Blighted ovum and nonhydatidiform mole (principal)
CPT/HCPCS: 36415; 84702

== ENCOUNTER → 2024-05-01 11:30 | Outpatient (CLI) | payer OTHER, SELFPAY ==
[2024-05-01 14:13] LABS: HCG Quantitative /Beta subunit 105170 mIU/mL
== END ==
LOC: LAB 11:31
PROVIDERS: PCP Family Medicine; Referring Provider Family Medicine; Visit Provider Family Medicine
DX: O09.A1 Supervision of pregnancy with history of molar pregnancy, first trimester (principal)
CPT/HCPCS: 36415; 84702

== ENCOUNTER → 2024-05-05 17:07 | Outpatient (CLI) | payer OTHER, SELFPAY ==
[2024-05-05 17:39] LABS: Add Manual Diff / Slide Review NO; Basophils Absolute Auto 0 /uL (0-100); Basophils Percent Auto 0.5 % (0-2); Eosinophils Absolute Auto 100 /uL (0-450); Eosinophils Percent Auto 1.4 % (2-4); Hematocrit 34.4 % (36-46); Hemoglobin 11.9 g/dL (12.0-16.0); Lymphocytes Absolute Auto 2500 /uL (1100-4500); Lymphocytes Percent Auto 24.8 % (25-40); Mean Corpuscular HGB Conc 34.4 % (30-36); Mean Corpuscular Hemoglobin 29.7 PG (26-34); Mean Corpuscular Volume 86.2 fL (80-100); Monocytes Absolute Auto 600 /uL (0-900); Monocytes Percent Auto 6.2 % (3-14); Neutrophils Absolute Auto 6800 /uL (1500-7000); Neutrophils Percent Auto 67.1 % (50-75); Platelet Count 305 X10^3/uL (150-400); Red Cell Distribution Width 13.1 % (11.6-14.8); White Blood Cell Count 10.1 X10^3/uL (4.5-11.0)
[2024-05-05 18:21] LABS: Appearance Urine UA CLEAR; Bilirubin Urine UA NEGATIVE (NEGATIVE); Color Urine UA YELLOW; Glucose Urine UA NEGATIVE (Negative); Ketones Urine UA 2+ (NEGATIVE); Leukocyte Esterase Urine UA NEGATIVE (NEGATIVE); Nitrite Urine UA NEGATIVE (Negative); Occult Blood Urine UA NEGATIVE (Negative); Protein Urine UA NEGATIVE (Negative); Specific Gravity Urine UA >=1.030 (1.000-1.035); Urobilinogen Urine UA 0.2 E.U./dL (0.2)
[2024-05-05 19:02] LABS: Hepatitis B Surface Antigen NEGATIVE s/c (NEGATIVE); Rubella Antibody IgG 11.1 IU/mL (>15)
[2024-05-05 19:04] LABS: HCG Quantitative /Beta subunit 166220 mIU/mL
[2024-05-05 19:32] LABS: HIV 1 & 2 Ab/Ag 4th Gen Combo NEGATIVE (NEGATIVE); Hep C Virus Ab w/Reflex Quant NEGATIVE s/c (NEGATIVE)
== END ==
PROVIDERS: PCP Family Medicine; Referring Provider Family Medicine; Visit Provider Family Medicine
DX: O09.A1 Supervision of pregnancy with history of molar pregnancy, first trimester (principal)
CPT/HCPCS: 36415; 80055; 81003; 84702; 86787; 86803; 86850; 86900; 86901; 87086; 87389

== ENCOUNTER → 2024-07-02 15:04 | Outpatient (CLI) | payer OTHER, SELFPAY ==
[2024-07-05 20:38] LABS: AFP, Serum 45.9 ng/mL (.); Estriol, Free 0.97 ng/mL (.); Inhibin A, Dimeric 241.13 pg/mL (.); Inhibin A, MoM 1.56 (.); Maternal Ethnicity Other (.); Maternal Weight 172 lbs (.); Number of Fetuses No (.); OSBR Risk 1 IN 2457 (.); Results Report (.); Test Results *Screen Negative* (.); hCG, MoM 1.27 (.)
== END ==
PROVIDERS: PCP Family Medicine; Referring Provider Family Medicine; Visit Provider Family Medicine
DX: Z34.81 Encounter for supervision of other normal pregnancy, first trimester (principal)
CPT/HCPCS: 36415; 82105; 82677; 84702; 86336

== ENCOUNTER → 2024-07-31 14:12 | Outpatient (CLI) | payer OTHER, SELFPAY ==
--- NOTE | 2024-07-31 14:14 | DI.US.S_ITS ---
PROCEDURE: US OB >= 14 WEEKS FETUS INDICATIONS: anatomy OUTSIDE/PRIOR DATING DATA: Last menstrual period (LMP): 03/13/2024. LMP-based estimated date of delivery (NATHANIEL): 12/18/2024. First dating scan (date and location): 05/07/2024. The calculations are made using the clinical NATHANIEL of 12/18/2024. TECHNIQUE: Real-time scanning was performed of the fetus, with image documentation and biometric measurements. Endovaginal scanning: No COMPARISON: [facility], , OB >= 14 WEEKS FETUS, 02/23/2022, 14:28. FINDINGS: General: A single living intrauterine gestation is present. Presentation: Variable. Placenta: Placental position is anterior , without previa. Amniotic fluid index: 21.1 cm, normal range is 5-24 cm. Single deepest vertical pocket is 7.4 cm. heart rate: 152 beats per minute. Maternal cervical canal: 5.0 cm long. Normal lower limit is 2.5 cm. biometrics: Biparietal diameter: 5.0 cm, 21 week 1 day Head circumference: 17.7 cm, 20 week 1 day Abdominal circumference: 16.1 cm, 21 week 2 day Femur length: 3.2 cm, 20 week 0 day Clinically estimated gestational age: 20 week 0 day Composite gestational age from present scan: 20 week 5 day Estimated weight and percentile: 367 g, 80 percentile Anatomic survey: Neuro: Ventricles are non-dilated at less than 10 mm. Cisterna magna is normal at 3-11 mm. Cerebellum is normal in size and morphology. Nuchal skin fold: Normal at less than 6 mm between 14-21 weeks gestational age. Face: Nose and lips, facial profile are normal. Spine: No evidence for spina bifida. Heart: 4-chambered heart is present, with normal ventricular outflow tracts. Diaphragm: Diaphragm is intact. Stomach: Left-sided stomach is present. Kidneys: No hydronephrosis. Normal is less than 5 mm in 2nd trimester, less than 7 mm in 3rd trimester. Cord: 3-vessel cord has orthotopic insertion. Bladder: Normal in size. Extremities: All 4 extremities identified. IMPRESSION: Single live intrauterine consistent with 20 week 5 day gestation. Normal anatomic survey Approved by: Jim Yap M.D. on 07/31/2024 at 17:40
== END ==
PROVIDERS: PCP Family Medicine; Referring Provider Family Medicine; Visit Provider Family Medicine
DX: Z34.82 Encounter for supervision of other normal pregnancy, second trimester (principal); Z3A.20 20 weeks gestation of pregnancy
CPT/HCPCS: 76811

== ENCOUNTER → 2024-10-02 12:17 | Outpatient (CLI) | payer OTHER, SELFPAY ==
[2024-10-02 14:35] LABS: GTT (PREG) 1 Hour PP 50gm Dose 89 mg/dL (76-139)
== END ==
PROVIDERS: PCP Family Medicine; Referring Provider Family Medicine; Visit Provider Family Medicine
DX: Z34.81 Encounter for supervision of other normal pregnancy, first trimester (principal)
CPT/HCPCS: 36415; 82950

== ENCOUNTER → 2024-11-19 15:14 | Outpatient (CLI) | payer OTHER, SELFPAY ==
[2024-11-21 08:10] LABS: Strep Grp B PCR POS for Grp B Strep
== END ==
PROVIDERS: PCP Family Medicine; Visit Provider Family Medicine
DX: Z34.81 Encounter for supervision of other normal pregnancy, first trimester (principal)
CPT/HCPCS: 87653

== ENCOUNTER 2024-12-12 08:21 | Inpatient (IN) | payer OTHER, SELFPAY ==
--- NOTE | 2024-12-12 08:55 | P.HPOB_ITS ---
OB HPI Date/Time Date of admission: 12/12/24 Date Patient Seen: 12/12/24 Time Patient Seen: 08:20 History of Present Condition Chief complaint: induction NATHANIEL Calculator Estimated Delivery Date Method Current WG Current Estimate 12/18/24 LMP (Certain) 39w 1d Estimated Gestational Age (weeks): 39w1d : 3 Para: 1 Narrative: 24yo at 39w1d here for elective IOL. Mild cramping, no contractions, LOF or vaginal bleeding. She is feeling her baby move regularly. Her has been uncomplicated. care: good care, initiated at week # (7) and pounds weight gain (31) Dating criteria OB: LMP confirmed by 1st trimester US Ultrasounds: normal 1st trimester US and normal mid trimester US Obstetrical complications: none Medical complications OB: none Indications Indication for induction OB: other (elective) Preadmission Labs Last OB Lab Results: Blood Type O Positive 05/05/24 17:11 Antibody Screen Negative 05/05/24 17:11 Hct 34.4 % (36-46) L 05/05/24 17:11 Hgb 11.9 g/dL (12.0-16.0) L 05/05/24 17:11 Hep Bs Antigen Negative s/c (NEGATIVE) 05/05/24 17:11 Hepatitis C Antibody Negative s/c (NEGATIVE) 05/05/24 17:11 Rubella Antibody 11.1 IU/mL (>15) L 05/05/24 17:11 VZV IgG Antibody 236 index (Immune >165) 05/05/24 17:11 Glucose 1 Hr 50 gm 89 mg/dL (76-139) 10/02/24 13:30 Group B Strep (PCR) Pos for grp b strep H 11/19/24 15:15 -: Urine: negative Genetic Screens: Quad screen: Normal External Labs -: Urine: negative Prior (ies) Past Pregnancies Del. Date GA/Weeks Labor Lgth Wt Sex Route Outcome Anesthesia Place Delv Breastfeed Preg Comp Name 06/30/22 39.4 10 6 lb 1 oz Female vaginal live - full term no ne IH 14 months other [place] 06/01/23 9-10 molar Delivery Date: 06/30/22 Last Updated by: Lorraine Paniagua RN placental insufficiency at end Delivery Date: 06/01/23 Last Updated by: Lorraine Paniagua RN partial mole, needed D&C Evaluation Evaluation Baseline heart rate: 150 Variability: Moderate (11-25) monitor accelerations: Present Monitor Decelerations: Absent Status: Category l Dilation (cm): 2 Effacement (%): 60 Dilation: 1-2 cm Effacement: 60-70% station: -3 Position of cervix: anterior Consistency: soft Méndez score: 7 PFSH Medical History (Updated 05/05/24 @ 15:12 by Lorraine Paniagua RN) Partial molar Spontaneous vaginal delivery Surgical History (Updated 05/05/24 @ 15:12 by Lorraine Paniagua RN) History of dilation and curettage Anesthesia [place] teeth removed (~08/09/20) Family History Grandmother Diabetes mellitus Social History marital status: number of children: 1 household members: spouse lives independently: Yes caregiver/support person: Yes housing: house pets and animals: Yes (Dogs, ) education level: high school (in [place]) occupational status: unemployed current occupational exposures/hazards: No cm/samaritan: [employer] special cm needs: No travel history: recent ([place]) seatbelt use: always water heater temp set < 120 deg: Yes working smoke detector in home: Yes fire extinguisher in home: Yes carbon monox detector in home: Yes firearms in home: Yes firearms unloaded and locked: Yes do you feel safe at home: Yes second hand exposure: No alcohol intake: never substance use type: does not use during the past year weight has: other well-balanced diet: daily or most days daily servings fruits/ve-4 caffeine: Yes (single cup coffee in AM) Type(s) of exercise: regular exercise and weight lifting Meds Home Medications and Allergies Home Medications Medication Instructions Recorded Confirmed Type double electric breast pump and #1 ea 06/20/22 12/08/24 Rx supplies double electric breast pump and #1 ea 06/26/22 12/08/24 Rx supplies acetaminophen 325 mg tablet 650 mg (2 x 325 mg) PO Q6HR PRN 07/21/22 12/08/24 Rx Pain, Mild (1-3) #30 tabs Lactobacillus acidophilus 1 1,000 mmu cells PO DAILY 05/05/24 12/08/24 History billion cell capsule vit no.95-ferrous 1 tab PO DAILY #90 tabs 05/05/24 12/08/24 Rx fumarate 28 mg-folic acid 800 mcg tablet ( Multivitamins) vitamin-ferrous sulfate tab PO 05/05/24 12/08/24 History 27 mg iron-folic acid 0.8 mg tablet ondansetron 4 mg disintegrating 4 mg PO Q8H PRN nausea and 07/31/24 12/08/24 Rx tablet vomiting #30 tabs vitamin with calcium tab PO DAILY 10/17/24 12/08/24 History no.72-iron 27 mg-folic acid 1 mg tablet (M- Plus) Allergies Allergy/AdvReac Type Severity Reaction Status Date / Time No Known Drug Allergies Allergy Verified 12/08/24 14:07 OB Exam Resp Effort & Inspection: normal respiratory effort Auscultation: clear to auscultation bilaterally Cardio Rate: regular rate Rhythm: regular rhythm Heart Sounds: S1 normal, S2 normal and no murmurs GI Inspection: non-distended Palpation: Yes soft and No tender Presentation: vertex Assessment and Plan Assessment and Plan Assessment and Plan narrative: 24yo at 39w1d here for elective IOL. uncomplicated. GBS positive, Rh positive. Méndez score 7 from clinic earlier this week. - Start ampicillin for GBS prophylaxis - FHT reassuring - Start pitocin, titrate as tolerated - Epidural for pain control when desired Time-Based Coding :: [TOTAL MINUTES] spent with patient and on the chart (including review of chart, obtaining history, exam, reviewing outside data, placing orders, documenting exam and treatment plan, and counseling patient) on [DATE].
[2024-12-12] MEDS: AMPICILLIN 2,000 MG in SODIUM CHLORIDE 0.9% 100 ML 200 MG IV (09:17)
[2024-12-12] MEDS: LACTATED RINGERS 1,000 ML 100 ML IV (09:17)
[2024-12-12] MEDS: OXYTOCIN PREMIX 30 UNIT/500 ML PLAST..BAG IV (09:18)
[2024-12-12 09:39] LABS: Add Manual Diff / Slide Review NO; Basophils Absolute Auto 0 /uL (0-100); Basophils Percent Auto 0.3 % (0-2); Eosinophils Absolute Auto 100 /uL (0-450); Eosinophils Percent Auto 0.8 % (2-4); Hematocrit 33.9 % (36-46); Hemoglobin 11.7 g/dL (12.0-16.0); Lymphocytes Absolute Auto 1800 /uL (1100-4500); Lymphocytes Percent Auto 17.7 % (25-40); Mean Corpuscular HGB Conc 34.4 % (30-36); Mean Corpuscular Hemoglobin 30.8 PG (26-34); Mean Corpuscular Volume 89.5 fL (80-100); Monocytes Absolute Auto 800 /uL (0-900); Monocytes Percent Auto 7.5 % (3-14); Neutrophils Absolute Auto 7700 /uL (1500-7000); Neutrophils Percent Auto 73.7 % (50-75); Platelet Count 286 X10^3/uL (150-400); Red Blood Cell Count 3.79 X10^6/uL (4.0-5.2); Red Cell Distribution Width 13.8 % (11.6-14.8); White Blood Cell Count 10.5 X10^3/uL (4.5-11.0)
[2024-12-12 10:55] VITALS: BP 116/69
[2024-12-12] MEDS: AMPICILLIN 1,000 MG in SODIUM CHLORIDE 0.9% 100 ML 200 MG IV ×2 (12:46→17:06)
[2024-12-12] MEDS: TRANEXAMIC ACID 1,000 MG in SODIUM CHLORIDE 0.9% 100 ML 600 MG IV (18:45)
--- NOTE | 2024-12-12 18:57 | PM.OBPRVD ---
Labor & Delivery Delivery date: 12/12/24 Intrapartal Events: None Cervical ripening method: none Induction method: per pitocin protocol Delivery augmentation: rupture of membranes Delivery monitor: external FHT and external uterine Route of delivery: Episiotomy description: None L&D Laceration Description: None Quantitative Blood Loss: 300 Anesthesia Type: Other (Nitrous oxide) Complications: None Narrative: PROCEDURE: at 39w1d presented for elective IOLD and was admitted to Labor and Delivery. The pt was started on pitocin for induction. The patient progressed through the 1st stage over 3 hours. AROM occured at 12:41 with clear fluid after adequate GBS prophylaxis with ampicillin. Pain was controlled with natural methods and then nitrous oxide in the 2nd stage. The patient progressed through the 2nd stage over 1 hour and delivered a viable male infant with APGARs 9/9 at 18:33 via without complications. Nuchal cord was reduced at the perineum. The cord was cut and clamped after it stopped pulsating. The placenta delivered with gentle cord traction, and appeared complete. A true knot was noted in the umbilical cord. The perineum and vagina were inspected with no lacerations. Needle and sponge counts were correct.? The vagina was inspected and no items were left in situ. Radha was doing well with her , and daughter at bedside. PREPROCEDURE DIAGNOSIS: Intrauterine at 39w1d GBS positive RH positive POSTPROCEDURE DIAGNOSIS: Intrauterine at 39w1d, delivered Same as preprocedure Baby 1: Infant gender: Male Presentation: vertex Position: Left Occiput Anterior Placenta delivery description: Spontaneous Cord Vessel Description: 3 Vessels, Nuchal Cord and True Knot score (1 min): 9 score (5 min): 9 weight: 7 lb 9.519 oz Plan for aftercare: Routine care
[2024-12-12] MEDS: IBUPROFEN 600 MG TABLET PO (19:50)
[2024-12-12] MEDS: LANOLIN OINT 7 GM 1 APPLIC TOP (19:50)
[2024-12-12] MEDS: ACETAMINOPHEN 325 MG TABLET 650 MG PO (19:50)
[2024-12-12] MEDS: DERMOPLAST SPRAY 20% 60 ML 1 SPRAY TOP (19:50)
[2024-12-12] MEDS: WITCH HAZEL/GLYCERIN PADS 1 EACH TOP (19:51)
[2024-12-12] MEDS: OXYCODONE IR 5 MG TABLET PO (20:34)
[2024-12-13] MEDS: ACETAMINOPHEN 325 MG TABLET 650 MG PO ×4 (02:33→20:06)
[2024-12-13] MEDS: IBUPROFEN 600 MG TABLET PO ×4 (02:33→20:07)
[2024-12-13] MEDS: OXYCODONE IR 5 MG TABLET PO ×4 (02:34→21:09)
[2024-12-13] MEDS: PRENATAL VIT,CALC/IRON/FOLIC 1 TABLET 1 TAB PO (08:32)
[2024-12-13] MEDS: DOCUSATE 100 MG CAPSULE PO (08:32)
--- NOTE | 2024-12-13 11:21 | PM.OBDS.1 ---
Discharge Providers Provider Date of admission: 12/12/24 08:21 Discharge Date: 12/14/24 Primary care physician: Stephanie Perez MD Consults: 12/13/24 18:56 Consult to Certified Adaptive Physical Educator Routine Comment: Discharge provider: Carson Lo MD Summary Hospital Course Date Patient Seen: 12/14/24 Time Patient Seen: 10:16 Diagnoses: Intrauterine gestation, [place], 39+ 1 weeks gestational age, delivered by spontaneous vaginal Hospital Course: Radha was admitted on the morning of 12/12/[address] Stephanie Perez for elective induction at 39+ 1 weeks gestational age. Patient responded well to induction and on the evening of 12/12/2024, delivered spontaneously a viable male infant with Apgars of 9/9, and weight 3445 g (7 lb 9.5 oz). Following delivery both mother and baby have done extremely well with the mother experiencing prompt return of bowel and bladder function, she is ambulating independently, tolerating regular diet, and her pain is well relieved with oral pain medications. She will be discharged at this time to home in an afebrile normotensive condition after counseling regarding precautionary symptoms, limitations of activity, medications, and plans for follow-up which will be in 6 weeks or as needed. Medications will include resumption of all preadmission medications and she will use eslz-izo-jwngbsy Tylenol and/or ibuprofen for pain relief. Peripartum Data Infant Delivery Method: Natural Vaginal Laceration Description: None Episiotomy description: None Procedures: Normal spontaneous vaginal delivery at term complications: none 1: Gender: Male Disposition of : home Status at Discharge Cognitive/behavioral status at discharge: oriented Functional status at discharge: independent ambulation Overall status at discharge: patient is progressing back to baseline Time Spent with Patient Time attestation: Total time spent providing and/or coordinating discharge services: 20 minutes Time spent: Less than 30 minutes Objective Labs 12/12/24 09:00 Exam HENMT Head: normal to inspection, normocephalic and atraumatic Eyes General: appearance normal, both eyes and all related structures Resp Effort & Inspection: normal respiratory effort and able to speak in complete sentences GI Inspection: normal to inspection Palpation: soft, no hepatosplenomegaly and mass (Firm nontender fundus, U minus 4) External Female Exam: other (Light lochia) Extrem Right lower extremity: normal to inspection Left lower extremity: normal to inspection Psych Appearance: grossly normal Mental Status: mental status grossly normal Speech and Movement: speech and movement normal Discharge Plan Discharge Plan Patient Disposition: Home Provider Discharge Comment: Please review the written instructions you received when you were discharged from the hospital. Your follow-up appointment with Dr. Perez will be in 6 weeks after your delivery but in the meanwhile if you have any questions, concerns, or other issues, please contact Dr. Perez's office [phone]. Discharge orders & Medications Prescriptions: New oxycodone 5 mg tablet 5 mg PO Q4-6H PRN (Reason: pain) Qty: 10 0RF ibuprofen 600 mg tablet 600 mg PO Q6H PRN (Reason: fever or pain) Qty: 30 2RF Continued (DME) double electric breast pump and supplies See Rx Instructions .ROUTE .MEDSUPPLY Qty: 1 0RF Rx Instructions: As directed M- Plus 27 mg iron- 1 mg tablet See Rx Instructions .ROUTE .COMPLEX Rx Instructions: Per MD order (DME) double electric breast pump and supplies See Rx Instructions .ROUTE .MEDSUPPLY Qty: 1 0RF Rx Instructions: As directed acetaminophen 325 mg tablet 650 mg PO Q6HR PRN (Reason: Pain, Mild (1-3)) Qty: 30 0RF ondansetron 4 mg tablet,disintegrating 4 mg PO Q8H PRN (Reason: nausea and vomiting) Qty: 30 1RF vit-ferrous sulfat-FA 27 mg iron- 0.8 mg tablet See Rx Instructions .ROUTE .COMPLEX Rx Instructions: Per MD order Lactobacillus acidophilus 1 billion cell capsule 1,000 mmu cells PO DAILY PNV cmb#95-ferrous fumarate-FA [ Multivitamins] 28 mg iron- 800 mcg tablet 1 tab PO DAILY Qty: 90 3RF Follow up/Referrals: Stephanie Perez MD [Primary Care Provider] - (Please call first thing sunday morning to make a 6 week follow-up appointment with Dr. Perez. ) Discharge Health Status Multidrug resistant organism: No MDRO Diet/Activity/Treatments Diet: Diet as Tolerated Activity: As tolerated Other treatments: Fick-kis-fqguygd Tylenol and/or ibuprofen may be used for additional pain relief. Gebx-cri-lukcegx stool softeners and/or MiraLax may be used as needed for constipation Skin/Wound/Dressing Care Report to your healthcare provider any signs of infection, such as:: chills, fever, increased pain, unusual drainage and unusual redness Dressing: N/A Visit Report/Discharge Packet Instructions: DI for Labor and Delivery, Vaginal , DI for and Nipple Soreness Discharge Data Primary Care Provider: Stephanie Perez Attending Provider: Stephanie Perez Admit Date/Time: 12/12/24 08:21
--- NOTE | 2024-12-13 20:49 | PM.OBPN.1 ---
Subjective - OB Subjective Patient comments: no complaints, pain well controlled, tolerating diet and flatus present baby status: doing well feeding status: exclusively breast feeding Date Patient Seen: 12/13/24 Time Patient Seen: 11:05 Exam HENMT Head: normal to inspection, normocephalic and atraumatic Eyes General: appearance normal, both eyes and all related structures Resp Effort & Inspection: normal respiratory effort and able to speak in complete sentences GI Inspection: normal to inspection Palpation: soft and no hepatosplenomegaly External Female Exam: other (Minimal lochia) Objective Labs 12/12/24 09:00 Assessment & Plan Plan day: 1 plan OB: routine care Comments: Infant will be remaining overnight therefore patient will be discharged in the AM. Time-Based Coding :: 15 spent with patient and on the chart (including review of chart, obtaining history, exam, reviewing outside data, placing orders, documenting exam and treatment plan, and counseling patient) on 12/13/2024.
[2024-12-14] MEDS: IBUPROFEN 600 MG TABLET PO ×2 (04:09→09:59)
[2024-12-14] MEDS: ACETAMINOPHEN 325 MG TABLET 650 MG PO ×2 (04:10→09:59)
[2024-12-14] MEDS: OXYCODONE IR 5 MG TABLET PO ×2 (04:42→11:44)
[2024-12-14] MEDS: PRENATAL VIT,CALC/IRON/FOLIC 1 TABLET 1 TAB PO (09:59)
[2024-12-14] MEDS: DOCUSATE 100 MG CAPSULE PO (09:59)
[2024-12-14] MEDS: MEASLES,MUMPS,RUBELLA VACC/PF 0.5 ML VIAL SUBCUT (11:44)
[2024-12-14 12:59] VITALS: BP 124/62; PULSE 78; RESP 16; TEMP 37
== END 2024-12-14 12:08 | disposition home or self-care (01) | DRG 807 ==
PROVIDERS: Admitting Provider Family Medicine; PCP Family Medicine; Referring Provider Family Medicine; Visit Provider Family Medicine
DX: O99.824 Streptococcus B carrier state complicating childbirth (principal); Z37.0 Single live birth; Z3A.39 39 weeks gestation of pregnancy; O69.2XX0 Labor and delivery complicated by other cord entanglement, with compression, not applicable or unspecified
CPT/HCPCS: 36415; 59050; 59400; 85025; 86850; 86900; 86901; G0378; G0379; J0290; J2590